=== PATIENT | male | born 1975 | race African-American/Black ===

== ENCOUNTER 2023-08-15 16:29 | Inpatient (IN) | payer OTHER ==
[2023-08-15] MEDS ORDERED: VANCOMYCIN 1,000 MG in DEXTROSE 5%-WATER - 250 ML IVPB ONE (17:48)
[2023-08-15] MEDS ORDERED: AZTREONAM 1 GM in DEXTROSE 5%-WATER - 50 ML IVPB ONE (17:49)
[2023-08-15] MEDS ORDERED: ACETAMINOPHEN 1000 MG/100 ML BAG IVPB ONE (17:53)
[2023-08-15] MEDS ORDERED: morphine CARPU-JECT 4 MG/1 ML DISP.SYRIN IVPUSH ONE (17:59)
[2023-08-15] MEDS ORDERED: morphine SULFATE 4 MG/ML VIAL ONE (18:18)
[2023-08-15] MEDS ORDERED: VANCOMYCIN 1 GRAM (PRE-DOCKED) 1,000 MG/250 ML BAG IVPB ONE (18:19)
[2023-08-15 18:24] LABS: BASO % 0.7 % (0-2.0); EOS % 0.6 % (0-4.5); HEMATOCRIT 36.7 % (35.4-49); HEMOGLOBIN 11.3 GM/dL (11.7-16.9); LYMPH % 12.7 % (8-40); MCHC 30.8 g/dl (32.0-35.9); MEAN CELL VOLUME 77.8 fl (80-96); MEAN PLT VOLUME 9.4 fl (7.5-11.1); MONO % 8.3 % (3.8-10.2); NEUT % 77.7 % (42.8-82.8); PLATELET COUNT 245 10^3/uL (134-434); RBC 4.71 M/mm3 (4.00-5.60); WHITE BLOOD COUNT 17.9 K/mm3 (4.0-10.0)
[2023-08-15 18:31] LABS: INR 1.65 (0.83-1.09)
[2023-08-15 18:59] LABS: POTASSIUM 4.4 mmol/L (3.5-5.1)
[2023-08-15 19:01] LABS: CALCIUM 8.7 mg/dL (8.5-10.1)
[2023-08-15 19:02] LABS: ALBUMIN 2.2 g/dl (3.4-5.0); BLOOD UREA NITROGEN 10.8 mg/dL (7-18)
[2023-08-15 19:05] LABS: CREATININE 0.8 mg/dL (0.55-1.3)
[2023-08-15 19:06] LABS: BILIRUBIN,TOTAL 0.5 mg/dL (0.2-1); TOT PROT 7.7 g/dl (6.4-8.2)
[2023-08-15] MEDS ORDERED: CLINDAMYCIN 600MG PREMIX IVPB 600 MG/50 ML BAG IVPB ONE ×2 (19:23→20:59)
[2023-08-15] MEDS ORDERED: ACETAMINOPHEN INJECTION 100 ML IVPB ONE (19:29)
[2023-08-15] MEDS ORDERED: ACETAMINOPHEN 500 MG TABLET (FP) ONE (19:31)
[2023-08-15] MEDS ORDERED: AZTREONAM 1 GM VIAL (RESTRICTED TO ID) ONE (20:59)
[2023-08-15] MEDS ORDERED: ACETAMINOPHEN 1000 MG/100 ML BAG IVPB PRN (21:25)
[2023-08-15] MEDS ORDERED: INSULIN (LEVEMIR) 100 UNITS/ML UNITS SQ SCH (22:00)
[2023-08-15] MEDS ORDERED: morphine SULFATE 4 MG/ML VIAL IVPUSH PRN (22:18)
[2023-08-15] MEDS: SODIUM CHLORIDE 1,000 ML IV SCH (22:40)
[2023-08-15] MEDS ORDERED: LACTATED RINGERS SOLUTION 1000 ML INFUS.BAG IV ONE (22:43)
[2023-08-16] MEDS ORDERED: CLINDAMYCIN 600MG PREMIX IVPB 600 MG/50 ML BAG IVPB SCH (05:00)
[2023-08-16] MEDS: SODIUM CHLORIDE 1,000 ML IV SCH (05:36)
[2023-08-16] MEDS ORDERED: AZTREONAM 2 GM in DEXTROSE 5%-WATER 100 ML IVPB SCH ×2 (06:00→14:00)
[2023-08-16] MEDS ORDERED: VANCOMYCIN PREMIX 1.5 GM 1,500 MG/300 ML BAG IVPB SCH ×3 (07:00→19:00)
[2023-08-16] MEDS: GABAPENTIN 100 MG CAPSULE PO SCH ×5 (07:54→21:54)
[2023-08-16 08:14] LABS: BASO % 0.5 % (0-2.0); EOS % 1.8 % (0-4.5); HEMATOCRIT 31.7 % (35.4-49); HEMOGLOBIN 10.5 GM/dL (11.7-16.9); LYMPH % 8.4 % (8-40); MEAN CELL VOLUME 75.8 fl (80-96); MONO % 5.3 % (3.8-10.2); PLATELET COUNT 249 10^3/uL (134-434); RBC 4.18 M/mm3 (4.00-5.60); WHITE BLOOD COUNT 14.8 K/mm3 (4.0-10.0)
[2023-08-16 08:42] LABS: POTASSIUM 4.1 mmol/L (3.5-5.1)
[2023-08-16] MEDS ORDERED: ACETAMINOPHEN INJECTION 100 ML IVPB ONE (08:43)
[2023-08-16 08:44] LABS: ALBUMIN 1.8 g/dl (3.4-5.0); BLOOD UREA NITROGEN 11.2 mg/dL (7-18); CALCIUM 7.7 mg/dL (8.5-10.1); MAGNESIUM 1.9 mg/dL (1.8-2.4)
[2023-08-16 08:47] LABS: CREATININE 0.8 mg/dL (0.55-1.3); PHOSPHOROUS 3.4 mg/dL (2.5-4.9)
[2023-08-16] MEDS ORDERED: FENTANYL CITRATE/PF 50 MCG/ML VIAL ONE (08:48)
[2023-08-16 08:49] LABS: BILIRUBIN,TOTAL 0.6 mg/dL (0.2-1); TOT PROT 6.6 g/dl (6.4-8.2)
[2023-08-16] MEDS ORDERED: PROPOFOL 20 ML ONE (08:49)
[2023-08-16] MEDS ORDERED: SUCCINYLCHOLINE CHLORIDE 200 MG/10 ML SYRINGE ONE (08:49)
[2023-08-16] MEDS ORDERED: MIDAZOLAM HCL 2 MG/2 ML SINGLE DOSE VIAL ONE (08:49)
[2023-08-16] MEDS ORDERED: VANCOMYCIN HCL 1,500 MG in DEXTROSE 5%-WATER - 250 ML IVPB SCH (09:00)
[2023-08-16] MEDS ORDERED: VANCOMYCIN 1,000 MG VIAL (RESTRICTED TO ID ONLY) ONE ×3 (10:36→11:07)
[2023-08-16] MEDS ORDERED: ACETAMINOPHEN 1000 MG/100 ML BAG IVPB PRN (11:29)
[2023-08-16] MEDS ORDERED: SODIUM CHLORIDE 1,000 ML IV SCH (11:29)
[2023-08-16] MEDS ORDERED: morphine SULFATE 4 MG/ML VIAL IVPUSH PRN (11:29)
[2023-08-16] MEDS ORDERED: LACTATED RINGERS SOLUTION 1,000 ML IV SCH (12:00)
[2023-08-16] MEDS: CLINDAMYCIN 600MG PREMIX IVPB 600 MG/50 ML BAG IVPB SCH ×2 (14:55→23:00)
[2023-08-16] MEDS: AZTREONAM 2 GM in DEXTROSE 5%-WATER 100 ML IVPB SCH ×2 (14:55→23:00)
[2023-08-16] MEDS: VANCOMYCIN PREMIX 1.5 GM 1,500 MG/300 ML BAG IVPB SCH (20:01)
[2023-08-16] MEDS: INSULIN (LEVEMIR) 100 UNITS/ML UNITS SQ SCH (21:54)
[2023-08-16] MEDS: ATORVASTATIN CA 40 MG TABLET (FP) PO SCH (21:55)
[2023-08-16] MEDS ORDERED: ATORVASTATIN CA 40 MG TABLET (FP) PO SCH (22:00)
[2023-08-17] MEDS ORDERED: ACETAMINOPHEN 325 MG TABLET (FP) PO PRN (01:49)
[2023-08-17] MEDS: AZTREONAM 2 GM in DEXTROSE 5%-WATER 100 ML IVPB SCH ×2 (05:51→14:49)
[2023-08-17] MEDS: GABAPENTIN 100 MG CAPSULE PO SCH ×3 (05:52→22:46)
[2023-08-17] MEDS: CLINDAMYCIN 600MG PREMIX IVPB 600 MG/50 ML BAG IVPB SCH ×3 (05:52→22:47)
[2023-08-17] MEDS: VANCOMYCIN PREMIX 1.5 GM 1,500 MG/300 ML BAG IVPB SCH ×2 (09:22→17:03)
[2023-08-17] MEDS: morphine SULFATE 4 MG/ML VIAL IVPUSH PRN (14:23)
[2023-08-17] MEDS: ASPIRIN 81 MG CHEWABLE TABLETS PO SCH (17:47)
[2023-08-17] MEDS: AZTREONAM 1 GM in DEXTROSE 5%-WATER - 50 ML IVPB SCH (18:58)
[2023-08-17] MEDS: ATORVASTATIN CA 40 MG TABLET (FP) PO SCH (22:46)
[2023-08-17] MEDS: INSULIN (LEVEMIR) 100 UNITS/ML UNITS SQ SCH (22:47)
[2023-08-18] MEDS: AZTREONAM 1 GM in DEXTROSE 5%-WATER - 50 ML IVPB SCH ×3 (01:40→18:15)
[2023-08-18] MEDS: VANCOMYCIN PREMIX 1.5 GM 1,500 MG/300 ML BAG IVPB SCH ×2 (03:00→16:39)
[2023-08-18] MEDS: GABAPENTIN 100 MG CAPSULE PO SCH ×3 (06:12→21:42)
[2023-08-18] MEDS: CLINDAMYCIN 600MG PREMIX IVPB 600 MG/50 ML BAG IVPB SCH ×3 (06:12→21:44)
[2023-08-18] MEDS: morphine SULFATE 4 MG/ML VIAL IVPUSH PRN ×2 (08:14→18:12)
[2023-08-18 09:10] LABS: BASO % 0.3 % (0-2.0); EOS % 1.6 % (0-4.5); HEMOGLOBIN 9.6 GM/dL (11.7-16.9); LYMPH % 10.1 % (8-40); MCH 24.2 pg (25.7-33.7); MCHC 31.1 g/dl (32.0-35.9); MEAN CELL VOLUME 77.7 fl (80-96); MEAN PLT VOLUME 8.4 fl (7.5-11.1); MONO % 6.4 % (3.8-10.2); NEUT % 81.6 % (42.8-82.8); PLATELET COUNT 300 10^3/uL (134-434); RBC 3.99 M/mm3 (4.00-5.60); RDW 15.2 % (11.9-15.9); WHITE BLOOD COUNT 16.5 K/mm3 (4.0-10.0)
[2023-08-18 09:41] LABS: POTASSIUM 4.1 mmol/L (3.5-5.1)
[2023-08-18 09:53] LABS: CALCIUM 8.1 mg/dL (8.5-10.1)
[2023-08-18 09:54] LABS: BLOOD UREA NITROGEN 8.8 mg/dL (7-18)
[2023-08-18 09:58] LABS: CREATININE 0.7 mg/dL (0.55-1.3)
[2023-08-18] MEDS: ASPIRIN 81 MG CHEWABLE TABLETS PO SCH (10:10)
[2023-08-18] MEDS ORDERED: ACETAMINOPHEN 325 MG TABLET (FP) PO PRN (11:29)
[2023-08-18] MEDS ORDERED: INSULIN (NOVOLOG) ASPART 100 UNITS/ML 10ML VIAL ONE (16:10)
[2023-08-18] MEDS: ATORVASTATIN CA 40 MG TABLET (FP) PO SCH (21:42)
[2023-08-18] MEDS: INSULIN (LEVEMIR) 100 UNITS/ML UNITS SQ SCH ×2 (21:44→21:50)
[2023-08-19] MEDS: morphine SULFATE 4 MG/ML VIAL IVPUSH PRN ×3 (01:02→18:31)
[2023-08-19] MEDS: AZTREONAM 1 GM in DEXTROSE 5%-WATER - 50 ML IVPB SCH ×3 (01:02→18:28)
[2023-08-19] MEDS: VANCOMYCIN PREMIX 1.5 GM 1,500 MG/300 ML BAG IVPB SCH ×2 (03:14→16:26)
[2023-08-19] MEDS: GABAPENTIN 100 MG CAPSULE PO SCH ×3 (06:18→21:45)
[2023-08-19] MEDS: CLINDAMYCIN 600MG PREMIX IVPB 600 MG/50 ML BAG IVPB SCH ×3 (06:18→21:46)
[2023-08-19 09:30] LABS: BASO % 0.6 % (0-2.0); EOS % 1.6 % (0-4.5); HEMATOCRIT 33.3 % (35.4-49); HEMOGLOBIN 10.1 GM/dL (11.7-16.9); LYMPH % 9.7 % (8-40); MCH 23.6 pg (25.7-33.7); MCHC 30.4 g/dl (32.0-35.9); MEAN CELL VOLUME 77.5 fl (80-96); MEAN PLT VOLUME 8.5 fl (7.5-11.1); MONO % 5.3 % (3.8-10.2); NEUT % 82.8 % (42.8-82.8); PLATELET COUNT 349 10^3/uL (134-434); RDW 14.8 % (11.9-15.9)
[2023-08-19 09:36] LABS: INR 1.68 (0.83-1.09); PROTHROMBIN TIME (PATIENT) 19.4 SEC (9.7-13.0)
[2023-08-19 10:23] LABS: POTASSIUM 4.5 mmol/L (3.5-5.1)
[2023-08-19 10:38] LABS: ALBUMIN 1.7 g/dl (3.4-5.0); BLOOD UREA NITROGEN 6.9 mg/dL (7-18); CALCIUM 8.5 mg/dL (8.5-10.1); MAGNESIUM 1.9 mg/dL (1.8-2.4)
[2023-08-19 10:43] LABS: CREATININE 0.7 mg/dL (0.55-1.3)
[2023-08-19 10:44] LABS: BILIRUBIN,TOTAL 0.4 mg/dL (0.2-1); TOT PROT 7.2 g/dl (6.4-8.2)
[2023-08-19] MEDS: ASPIRIN 81 MG CHEWABLE TABLETS PO SCH (11:30)
[2023-08-19] MEDS: ATORVASTATIN CA 40 MG TABLET (FP) PO SCH (21:45)
[2023-08-19] MEDS: INSULIN (LEVEMIR) 100 UNITS/ML UNITS SQ SCH (21:50)
[2023-08-20] MEDS: morphine SULFATE 4 MG/ML VIAL IVPUSH PRN ×3 (00:30→09:20)
[2023-08-20] MEDS: AZTREONAM 1 GM in DEXTROSE 5%-WATER - 50 ML IVPB SCH ×3 (01:03→17:50)
[2023-08-20] MEDS: VANCOMYCIN PREMIX 1.5 GM 1,500 MG/300 ML BAG IVPB SCH ×2 (03:53→16:41)
[2023-08-20] MEDS: GABAPENTIN 100 MG CAPSULE PO SCH ×4 (05:01→21:56)
[2023-08-20] MEDS: CLINDAMYCIN 600MG PREMIX IVPB 600 MG/50 ML BAG IVPB SCH ×2 (05:04→13:15)
[2023-08-20 08:44] LABS: BASO % 0.8 % (0-2.0); EOS % 1.2 % (0-4.5); HEMATOCRIT 30.4 % (35.4-49); LYMPH % 14.2 % (8-40); MCH 24.8 pg (25.7-33.7); MCHC 32.7 g/dl (32.0-35.9); MEAN CELL VOLUME 75.6 fl (80-96); MEAN PLT VOLUME 8.3 fl (7.5-11.1); MONO % 6.5 % (3.8-10.2); NEUT % 77.3 % (42.8-82.8); PLATELET COUNT 391 10^3/uL (134-434); RBC 4.03 M/mm3 (4.00-5.60); WHITE BLOOD COUNT 12.6 K/mm3 (4.0-10.0)
[2023-08-20 09:02] LABS: POTASSIUM 4.3 mmol/L (3.5-5.1)
[2023-08-20 09:21] LABS: ALBUMIN 1.7 g/dl (3.4-5.0); CALCIUM 8.6 mg/dL (8.5-10.1); MAGNESIUM 1.8 mg/dL (1.8-2.4)
[2023-08-20 09:24] LABS: CREATININE 0.6 mg/dL (0.55-1.3)
[2023-08-20 09:25] LABS: BILIRUBIN,TOTAL 0.6 mg/dL (0.2-1); TOT PROT 7.3 g/dl (6.4-8.2)
[2023-08-20] MEDS: ASPIRIN 81 MG CHEWABLE TABLETS PO SCH (09:57)
[2023-08-20] MEDS ORDERED: ACETAMINOPHEN 500 MG TABLET (FP) PO PRN (14:00)
[2023-08-20] MEDS ORDERED: PROPOFOL 20 ML ONE (21:46)
[2023-08-20] MEDS ORDERED: FENTANYL CITRATE/PF 50 MCG/ML VIAL ONE (21:46)
[2023-08-20] MEDS ORDERED: MIDAZOLAM HCL 2 MG/2 ML SINGLE DOSE VIAL ONE ×2 (21:46→21:49)
[2023-08-20] MEDS ORDERED: LIDOCAINE HCL 1%, 10 MG/ML (20ML VIAL) NR ONE (21:55)
[2023-08-20] MEDS: ATORVASTATIN CA 40 MG TABLET (FP) PO SCH (21:56)
[2023-08-20] MEDS: INSULIN (LEVEMIR) 100 UNITS/ML UNITS SQ SCH (21:56)
[2023-08-20] MEDS ORDERED: SODIUM CHLORIDE 1,000 ML IV SCH (22:45)
[2023-08-21] MEDS: AZTREONAM 1 GM in DEXTROSE 5%-WATER - 50 ML IVPB SCH ×3 (01:06→17:31)
[2023-08-21] MEDS: SODIUM CHLORIDE 1,000 ML IV SCH ×2 (01:08→21:56)
[2023-08-21] MEDS: VANCOMYCIN PREMIX 1.5 GM 1,500 MG/300 ML BAG IVPB SCH ×2 (03:01→17:31)
[2023-08-21] MEDS ORDERED: INSULIN (NOVOLOG) ASPART 100 UNITS/ML 10ML VIAL ONE (06:43)
[2023-08-21] MEDS: GABAPENTIN 100 MG CAPSULE PO SCH ×3 (06:47→21:31)
[2023-08-21] MEDS: ACETAMINOPHEN 500 MG TABLET (FP) PO PRN ×2 (06:48→13:49)
[2023-08-21] MEDS ORDERED: INSULIN (LEVEMIR) 100 UNITS/ML UNITS SQ ONE (07:02)
[2023-08-21] MEDS: morphine SULFATE 4 MG/ML VIAL IVPUSH PRN ×4 (08:42→21:32)
[2023-08-21 09:18] LABS: BASO % 0.7 % (0-2.0); EOS % 0.5 % (0-4.5); HEMATOCRIT 30.9 % (35.4-49); HEMOGLOBIN 10.2 GM/dL (11.7-16.9); LYMPH % 10.3 % (8-40); MCH 24.7 pg (25.7-33.7); MCHC 32.9 g/dl (32.0-35.9); MEAN CELL VOLUME 75.2 fl (80-96); MEAN PLT VOLUME 8.1 fl (7.5-11.1); NEUT % 82.5 % (42.8-82.8); PLATELET COUNT 472 10^3/uL (134-434); RBC 4.11 M/mm3 (4.00-5.60); RDW 14.9 % (11.9-15.9); WHITE BLOOD COUNT 16.7 K/mm3 (4.0-10.0)
[2023-08-21 09:55] LABS: POTASSIUM 4.7 mmol/L (3.5-5.1)
[2023-08-21 09:59] LABS: CALCIUM 8.2 mg/dL (8.5-10.1)
[2023-08-21 10:00] LABS: ALBUMIN 1.8 g/dl (3.4-5.0); MAGNESIUM 1.9 mg/dL (1.8-2.4)
[2023-08-21 10:03] LABS: CREATININE 0.7 mg/dL (0.55-1.3)
[2023-08-21 10:04] LABS: BILIRUBIN,TOTAL 0.4 mg/dL (0.2-1); TOT PROT 7.7 g/dl (6.4-8.2)
[2023-08-21 10:08] LABS: BLOOD UREA NITROGEN 8.8 mg/dL (7-18)
[2023-08-21] MEDS: ASPIRIN 81 MG CHEWABLE TABLETS PO SCH (10:44)
[2023-08-21] MEDS ORDERED: oxyCODONE HCL 5 MG TABLET PO PRN (12:12)
[2023-08-21] MEDS: POLYETHYLENE GLYCOL (HEALTHYLAX) 3350 17 GM PACKET PO SCH (13:45)
[2023-08-21] MEDS: ATORVASTATIN CA 40 MG TABLET (FP) PO SCH (21:31)
[2023-08-21] MEDS: INSULIN (LEVEMIR) 100 UNITS/ML UNITS SQ SCH (21:35)
[2023-08-22] MEDS: morphine SULFATE 4 MG/ML VIAL IVPUSH PRN ×2 (00:46→08:05)
[2023-08-22] MEDS: AZTREONAM 1 GM in DEXTROSE 5%-WATER - 50 ML IVPB SCH ×3 (01:52→17:14)
[2023-08-22] MEDS: VANCOMYCIN PREMIX 1.5 GM 1,500 MG/300 ML BAG IVPB SCH ×2 (04:57→15:44)
[2023-08-22] MEDS: GABAPENTIN 100 MG CAPSULE PO SCH (05:15)
[2023-08-22 09:35] LABS: BASO % 0.7 % (0-2.0); EOS % 0.8 % (0-4.5); HEMOGLOBIN 9.8 GM/dL (11.7-16.9); MCH 24.6 pg (25.7-33.7); MCHC 32.7 g/dl (32.0-35.9); MEAN CELL VOLUME 75.3 fl (80-96); MONO % 5.8 % (3.8-10.2); NEUT % 78.7 % (42.8-82.8); PLATELET COUNT 464 10^3/uL (134-434); RBC 3.98 M/mm3 (4.00-5.60); WHITE BLOOD COUNT 14.2 K/mm3 (4.0-10.0)
[2023-08-22 09:51] LABS: POTASSIUM 4.6 mmol/L (3.5-5.1)
[2023-08-22 10:00] LABS: ALBUMIN 1.8 g/dl (3.4-5.0); CALCIUM 8.2 mg/dL (8.5-10.1)
[2023-08-22 10:02] LABS: BLOOD UREA NITROGEN 6.6 mg/dL (7-18); MAGNESIUM 1.9 mg/dL (1.8-2.4)
[2023-08-22 10:03] LABS: CREATININE 0.6 mg/dL (0.55-1.3)
[2023-08-22 10:05] LABS: BILIRUBIN,TOTAL 0.6 mg/dL (0.2-1); TOT PROT 7.6 g/dl (6.4-8.2)
[2023-08-22] MEDS: POLYETHYLENE GLYCOL (HEALTHYLAX) 3350 17 GM PACKET PO SCH (10:40)
[2023-08-22] MEDS: ASPIRIN 81 MG CHEWABLE TABLETS PO SCH (10:40)
[2023-08-22] MEDS: oxyCODONE HCL 5 MG TABLET PO PRN ×3 (10:51→21:25)
[2023-08-22] MEDS: GABAPENTIN 400 MG CAPSULE PO SCH ×2 (13:58→21:25)
[2023-08-22] MEDS: ATORVASTATIN CA 40 MG TABLET (FP) PO SCH (21:24)
[2023-08-22] MEDS: INSULIN (LEVEMIR) 100 UNITS/ML UNITS SQ SCH (21:42)
[2023-08-23] MEDS: AZTREONAM 1 GM in DEXTROSE 5%-WATER - 50 ML IVPB SCH ×3 (01:05→17:37)
[2023-08-23] MEDS: oxyCODONE HCL 5 MG TABLET PO PRN ×5 (02:32→22:44)
[2023-08-23] MEDS: VANCOMYCIN PREMIX 1.5 GM 1,500 MG/300 ML BAG IVPB SCH ×2 (03:09→15:27)
[2023-08-23] MEDS: GABAPENTIN 400 MG CAPSULE PO SCH (05:46)
[2023-08-23] MEDS: ACETAMINOPHEN 500 MG TABLET (FP) PO PRN ×2 (08:31→17:41)
[2023-08-23] MEDS: SODIUM CHLORIDE 1,000 ML IV SCH ×2 (08:34→22:35)
[2023-08-23] MEDS: POLYETHYLENE GLYCOL (HEALTHYLAX) 3350 17 GM PACKET PO SCH (10:09)
[2023-08-23] MEDS: ASPIRIN 81 MG CHEWABLE TABLETS PO SCH (10:09)
[2023-08-23] MEDS: GABAPENTIN 300 MG CAPSULE PO SCH ×2 (13:13→22:35)
[2023-08-23] MEDS: ATORVASTATIN CA 40 MG TABLET (FP) PO SCH (22:35)
[2023-08-23] MEDS: INSULIN (LEVEMIR) 100 UNITS/ML UNITS SQ SCH (22:36)
[2023-08-24] MEDS: AZTREONAM 1 GM in DEXTROSE 5%-WATER - 50 ML IVPB SCH ×3 (02:31→19:55)
[2023-08-24] MEDS: oxyCODONE HCL 5 MG TABLET PO PRN ×3 (05:18→17:20)
[2023-08-24] MEDS: GABAPENTIN 300 MG CAPSULE PO SCH ×3 (05:18→21:12)
[2023-08-24] MEDS: VANCOMYCIN PREMIX 1.5 GM 1,500 MG/300 ML BAG IVPB SCH ×2 (05:18→17:50)
[2023-08-24 10:02] LABS: BASO % 1.1 % (0-2.0); EOS % 1.5 % (0-4.5); HEMOGLOBIN 9.6 GM/dL (11.7-16.9); LYMPH % 18.1 % (8-40); MCH 24.2 pg (25.7-33.7); MCHC 31.1 g/dl (32.0-35.9); MEAN CELL VOLUME 77.8 fl (80-96); MEAN PLT VOLUME 7.9 fl (7.5-11.1); MONO % 6.6 % (3.8-10.2); NEUT % 72.7 % (42.8-82.8); PLATELET COUNT 526 10^3/uL (134-434); RBC 3.98 M/mm3 (4.00-5.60); RDW 14.9 % (11.9-15.9); WHITE BLOOD COUNT 9.1 K/mm3 (4.0-10.0)
[2023-08-24] MEDS: POLYETHYLENE GLYCOL (HEALTHYLAX) 3350 17 GM PACKET PO SCH (10:29)
[2023-08-24] MEDS: ASPIRIN 81 MG CHEWABLE TABLETS PO SCH (10:29)
[2023-08-24 10:56] LABS: POTASSIUM 4.8 mmol/L (3.5-5.1)
[2023-08-24 10:59] LABS: CALCIUM 8.9 mg/dL (8.5-10.1)
[2023-08-24 11:00] LABS: ALBUMIN 1.9 g/dl (3.4-5.0); BLOOD UREA NITROGEN 7.9 mg/dL (7-18); MAGNESIUM 1.9 mg/dL (1.8-2.4)
[2023-08-24 11:02] LABS: CREATININE 0.7 mg/dL (0.55-1.3)
[2023-08-24 11:04] LABS: BILIRUBIN,TOTAL 0.3 mg/dL (0.2-1); TOT PROT 7.7 g/dl (6.4-8.2)
[2023-08-24] MEDS: AMMONIUM LACTATE 12% LOTION 225 GM BOTTLE TP PRN (12:20)
[2023-08-24] MEDS: morphine SULFATE 4 MG/ML VIAL IVPUSH PRN (21:11)
[2023-08-24] MEDS: ATORVASTATIN CA 40 MG TABLET (FP) PO SCH (21:12)
[2023-08-24] MEDS: INSULIN (LEVEMIR) 100 UNITS/ML UNITS SQ SCH (21:23)
[2023-08-25] MEDS: AZTREONAM 1 GM in DEXTROSE 5%-WATER - 50 ML IVPB SCH ×3 (02:05→18:20)
[2023-08-25] MEDS: GABAPENTIN 300 MG CAPSULE PO SCH ×3 (05:09→21:19)
[2023-08-25] MEDS: VANCOMYCIN PREMIX 1.5 GM 1,500 MG/300 ML BAG IVPB SCH ×2 (05:10→16:56)
[2023-08-25] MEDS: oxyCODONE HCL 5 MG TABLET PO PRN ×3 (05:23→21:17)
[2023-08-25 07:16] LABS: BASO % 1.5 % (0-2.0); EOS % 1.3 % (0-4.5); HEMATOCRIT 31.2 % (35.4-49); HEMOGLOBIN 9.9 GM/dL (11.7-16.9); LYMPH % 21.1 % (8-40); MCH 24.4 pg (25.7-33.7); MCHC 31.6 g/dl (32.0-35.9); MEAN CELL VOLUME 77.3 fl (80-96); MEAN PLT VOLUME 7.7 fl (7.5-11.1); NEUT % 69.1 % (42.8-82.8); PLATELET COUNT 519 10^3/uL (134-434); RBC 4.04 M/mm3 (4.00-5.60); RDW 14.8 % (11.9-15.9); WHITE BLOOD COUNT 8.8 K/mm3 (4.0-10.0)
[2023-08-25] MEDS: morphine SULFATE 4 MG/ML VIAL IVPUSH PRN (08:32)
[2023-08-25] MEDS: ASPIRIN 81 MG CHEWABLE TABLETS PO SCH (12:02)
[2023-08-25] MEDS: POLYETHYLENE GLYCOL (HEALTHYLAX) 3350 17 GM PACKET PO SCH (12:03)
[2023-08-25] MEDS: INSULIN SLIDING SCALE (NOVOLOG) 1 VIAL SQ SCH ×2 (16:34→21:19)
[2023-08-25] MEDS: AMMONIUM LACTATE 12% LOTION 225 GM BOTTLE TP PRN (18:19)
[2023-08-25] MEDS: INSULIN (LEVEMIR) 100 UNITS/ML UNITS SQ SCH (21:18)
[2023-08-25] MEDS: ATORVASTATIN CA 40 MG TABLET (FP) PO SCH (21:19)
[2023-08-26] MEDS: AZTREONAM 1 GM in DEXTROSE 5%-WATER - 50 ML IVPB SCH ×3 (01:03→17:24)
[2023-08-26] MEDS: oxyCODONE HCL 5 MG TABLET PO PRN ×4 (02:56→19:07)
[2023-08-26] MEDS: VANCOMYCIN PREMIX 1.5 GM 1,500 MG/300 ML BAG IVPB SCH ×2 (05:27→15:54)
[2023-08-26] MEDS: GABAPENTIN 300 MG CAPSULE PO SCH ×3 (05:33→22:48)
[2023-08-26] MEDS: INSULIN SLIDING SCALE (NOVOLOG) 1 VIAL SQ SCH ×4 (06:10→22:48)
[2023-08-26 10:05] LABS: BASO % 1.7 % (0-2.0); EOS % 0.8 % (0-4.5); HEMATOCRIT 32.3 % (35.4-49); HEMOGLOBIN 10.2 GM/dL (11.7-16.9); LYMPH % 18.8 % (8-40); MCH 24.4 pg (25.7-33.7); MCHC 31.6 g/dl (32.0-35.9); MEAN CELL VOLUME 77.2 fl (80-96); MEAN PLT VOLUME 7.6 fl (7.5-11.1); MONO % 6.7 % (3.8-10.2); PLATELET COUNT 542 10^3/uL (134-434); RBC 4.19 M/mm3 (4.00-5.60); RDW 14.7 % (11.9-15.9); WHITE BLOOD COUNT 8.2 K/mm3 (4.0-10.0)
[2023-08-26] MEDS: ENOXAPARIN NA (PORCINE) 40 MG/0.4 ML DISP.SYRIN SQ SCH (10:23)
[2023-08-26] MEDS: ASPIRIN 81 MG CHEWABLE TABLETS PO SCH (10:23)
[2023-08-26] MEDS: POLYETHYLENE GLYCOL (HEALTHYLAX) 3350 17 GM PACKET PO SCH (10:23)
[2023-08-26 10:37] LABS: POTASSIUM 4.4 mmol/L (3.5-5.1)
[2023-08-26 11:27] LABS: CALCIUM 8.8 mg/dL (8.5-10.1)
[2023-08-26 11:28] LABS: ALBUMIN 1.9 g/dl (3.4-5.0); BLOOD UREA NITROGEN 5.7 mg/dL (7-18); MAGNESIUM 1.7 mg/dL (1.8-2.4)
[2023-08-26 11:31] LABS: CREATININE 0.6 mg/dL (0.55-1.3)
[2023-08-26 11:33] LABS: BILIRUBIN,TOTAL 0.4 mg/dL (0.2-1); TOT PROT 7.7 g/dl (6.4-8.2)
[2023-08-26] MEDS: ATORVASTATIN CA 40 MG TABLET (FP) PO SCH (22:48)
[2023-08-26] MEDS: INSULIN (LEVEMIR) 100 UNITS/ML UNITS SQ SCH (22:49)
[2023-08-27] MEDS: oxyCODONE HCL 5 MG TABLET PO PRN ×4 (00:50→21:23)
[2023-08-27] MEDS: AZTREONAM 1 GM in DEXTROSE 5%-WATER - 50 ML IVPB SCH ×3 (01:14→17:27)
[2023-08-27] MEDS: VANCOMYCIN PREMIX 1.5 GM 1,500 MG/300 ML BAG IVPB SCH ×2 (05:02→15:59)
[2023-08-27] MEDS: INSULIN SLIDING SCALE (NOVOLOG) 1 VIAL SQ SCH ×4 (07:01→21:30)
[2023-08-27] MEDS: GABAPENTIN 300 MG CAPSULE PO SCH ×3 (07:01→21:24)
[2023-08-27 09:50] LABS: BASO % 1.1 % (0-2.0); EOS % 1.4 % (0-4.5); HEMATOCRIT 31.3 % (35.4-49); HEMOGLOBIN 10.2 GM/dL (11.7-16.9); LYMPH % 22.1 % (8-40); MCH 24.5 pg (25.7-33.7); MCHC 32.5 g/dl (32.0-35.9); MEAN CELL VOLUME 75.4 fl (80-96); MEAN PLT VOLUME 7.5 fl (7.5-11.1); MONO % 7.7 % (3.8-10.2); NEUT % 67.7 % (42.8-82.8); PLATELET COUNT 514 10^3/uL (134-434); RBC 4.15 M/mm3 (4.00-5.60); WHITE BLOOD COUNT 8.5 K/mm3 (4.0-10.0)
[2023-08-27 09:52] LABS: POTASSIUM 4.3 mmol/L (3.5-5.1)
[2023-08-27 10:03] LABS: BLOOD UREA NITROGEN 9.3 mg/dL (7-18); MAGNESIUM 1.7 mg/dL (1.8-2.4)
[2023-08-27 10:06] LABS: CREATININE 0.6 mg/dL (0.55-1.3)
[2023-08-27 10:08] LABS: BILIRUBIN,TOTAL 0.3 mg/dL (0.2-1); TOT PROT 7.7 g/dl (6.4-8.2)
[2023-08-27] MEDS: AMINO ACIDS/PROTEIN HYDROLYS 30 ML LIQUID.PKT PO SCH ×2 (10:47→16:39)
[2023-08-27] MEDS: POLYETHYLENE GLYCOL (HEALTHYLAX) 3350 17 GM PACKET PO SCH (10:47)
[2023-08-27] MEDS: ASPIRIN 81 MG CHEWABLE TABLETS PO SCH (10:47)
[2023-08-27] MEDS: PANTOPRAZOLE 40 MG TABLET PO SCH (10:48)
[2023-08-27] MEDS: NYSTATIN 500,000 UNITS/5 ML SUSPENSION PO SCH ×3 (10:48→17:27)
[2023-08-27] MEDS: ENOXAPARIN NA (PORCINE) 40 MG/0.4 ML DISP.SYRIN SQ SCH (10:48)
[2023-08-27] MEDS ORDERED: INSULIN (NOVOLOG) ASPART 100 UNITS/ML 10ML VIAL ONE (15:54)
[2023-08-27] MEDS: INSULIN (LEVEMIR) 100 UNITS/ML UNITS SQ SCH (21:24)
[2023-08-27] MEDS: ATORVASTATIN CA 40 MG TABLET (FP) PO SCH (21:25)
[2023-08-28] MEDS: AZTREONAM 1 GM in DEXTROSE 5%-WATER - 50 ML IVPB SCH ×2 (01:14→09:56)
[2023-08-28] MEDS: NYSTATIN 500,000 UNITS/5 ML SUSPENSION PO SCH ×5 (01:14→23:43)
[2023-08-28] MEDS: VANCOMYCIN PREMIX 1.5 GM 1,500 MG/300 ML BAG IVPB SCH ×2 (03:17→16:49)
[2023-08-28] MEDS: oxyCODONE HCL 5 MG TABLET PO PRN ×4 (03:17→18:29)
[2023-08-28] MEDS: GABAPENTIN 300 MG CAPSULE PO SCH ×3 (05:37→21:22)
[2023-08-28] MEDS: INSULIN SLIDING SCALE (NOVOLOG) 1 VIAL SQ SCH ×4 (06:06→22:38)
[2023-08-28 09:18] LABS: BASO % 0.9 % (0-2.0); EOS % 1.2 % (0-4.5); HEMATOCRIT 31.2 % (35.4-49); LYMPH % 23.7 % (8-40); MCH 24.7 pg (25.7-33.7); MEAN CELL VOLUME 77.3 fl (80-96); MEAN PLT VOLUME 7.6 fl (7.5-11.1); MONO % 8.2 % (3.8-10.2); PLATELET COUNT 468 10^3/uL (134-434); RBC 4.03 M/mm3 (4.00-5.60); RDW 14.8 % (11.9-15.9); WHITE BLOOD COUNT 7.2 K/mm3 (4.0-10.0)
[2023-08-28] MEDS: PANTOPRAZOLE 40 MG TABLET PO SCH (09:56)
[2023-08-28] MEDS: ASPIRIN 81 MG CHEWABLE TABLETS PO SCH (09:56)
[2023-08-28] MEDS: POLYETHYLENE GLYCOL (HEALTHYLAX) 3350 17 GM PACKET PO SCH ×2 (09:56→10:17)
[2023-08-28] MEDS: ENOXAPARIN NA (PORCINE) 40 MG/0.4 ML DISP.SYRIN SQ SCH (09:56)
[2023-08-28] MEDS: AMINO ACIDS/PROTEIN HYDROLYS 30 ML LIQUID.PKT PO SCH ×2 (10:04→16:46)
[2023-08-28 10:09] LABS: POTASSIUM 4.6 mmol/L (3.5-5.1)
[2023-08-28 10:12] LABS: ALBUMIN 2.1 g/dl (3.4-5.0); BLOOD UREA NITROGEN 12.2 mg/dL (7-18); CALCIUM 8.7 mg/dL (8.5-10.1); MAGNESIUM 1.9 mg/dL (1.8-2.4)
[2023-08-28 10:15] LABS: CREATININE 0.6 mg/dL (0.55-1.3)
[2023-08-28 10:17] LABS: BILIRUBIN,TOTAL 0.4 mg/dL (0.2-1); TOT PROT 7.8 g/dl (6.4-8.2)
[2023-08-28] MEDS ORDERED: INSULIN (NOVOLOG) ASPART 100 UNITS/ML 10ML VIAL ONE ×4 (11:49→16:45)
[2023-08-28] MEDS: ATORVASTATIN CA 40 MG TABLET (FP) PO SCH (21:22)
[2023-08-28] MEDS: INSULIN (LEVEMIR) 100 UNITS/ML UNITS SQ SCH (22:32)
[2023-08-29] MEDS: AZTREONAM 1 GM in DEXTROSE 5%-WATER - 50 ML IVPB SCH ×4 (03:05→17:30)
[2023-08-29] MEDS: VANCOMYCIN PREMIX 1.5 GM 1,500 MG/300 ML BAG IVPB SCH ×2 (04:04→16:21)
[2023-08-29] MEDS: NYSTATIN 500,000 UNITS/5 ML SUSPENSION PO SCH ×4 (06:01→23:53)
[2023-08-29] MEDS: GABAPENTIN 300 MG CAPSULE PO SCH ×3 (06:01→21:58)
[2023-08-29] MEDS: oxyCODONE HCL 5 MG TABLET PO PRN ×4 (06:05→21:55)
[2023-08-29] MEDS: INSULIN SLIDING SCALE (NOVOLOG) 1 VIAL SQ SCH ×4 (06:33→22:07)
[2023-08-29 08:21] LABS: EOS % 1.1 % (0-4.5); HEMATOCRIT 30.9 % (35.4-49); HEMOGLOBIN 10.1 GM/dL (11.7-16.9); LYMPH % 23.7 % (8-40); MCH 24.7 pg (25.7-33.7); MCHC 32.8 g/dl (32.0-35.9); MEAN CELL VOLUME 75.3 fl (80-96); MEAN PLT VOLUME 7.7 fl (7.5-11.1); MONO % 7.5 % (3.8-10.2); NEUT % 66.7 % (42.8-82.8); PLATELET COUNT 439 10^3/uL (134-434); RDW 14.9 % (11.9-15.9); WHITE BLOOD COUNT 7.3 K/mm3 (4.0-10.0)
[2023-08-29 08:44] LABS: POTASSIUM 4.2 mmol/L (3.5-5.1)
[2023-08-29 08:50] LABS: BLOOD UREA NITROGEN 14.2 mg/dL (7-18); CALCIUM 8.4 mg/dL (8.5-10.1); MAGNESIUM 1.7 mg/dL (1.8-2.4)
[2023-08-29 08:53] LABS: CREATININE 0.7 mg/dL (0.55-1.3)
[2023-08-29 08:55] LABS: BILIRUBIN,TOTAL 0.3 mg/dL (0.2-1); TOT PROT 7.4 g/dl (6.4-8.2)
[2023-08-29] MEDS: AMINO ACIDS/PROTEIN HYDROLYS 30 ML LIQUID.PKT PO SCH ×2 (09:36→16:34)
[2023-08-29] MEDS: PANTOPRAZOLE 40 MG TABLET PO SCH (09:37)
[2023-08-29] MEDS: POLYETHYLENE GLYCOL (HEALTHYLAX) 3350 17 GM PACKET PO SCH (09:37)
[2023-08-29] MEDS: ENOXAPARIN NA (PORCINE) 40 MG/0.4 ML DISP.SYRIN SQ SCH (09:37)
[2023-08-29] MEDS: ASPIRIN 81 MG CHEWABLE TABLETS PO SCH (09:37)
[2023-08-29] MEDS ORDERED: INSULIN (NOVOLOG) ASPART 100 UNITS/ML 10ML VIAL ONE ×2 (13:07→17:09)
[2023-08-29] MEDS: CARBAMIDE PEROXIDE 6.5% OTIC 15 ML BOTTLE AD SCH ×2 (13:24→22:51)
[2023-08-29 18:39] VITALS: BMI 31.6
[2023-08-29] MEDS: ATORVASTATIN CA 40 MG TABLET (FP) PO SCH (21:56)
[2023-08-29] MEDS: INSULIN (LEVEMIR) 100 UNITS/ML UNITS SQ SCH (22:07)
[2023-08-30] MEDS: AZTREONAM 1 GM in DEXTROSE 5%-WATER - 50 ML IVPB SCH ×3 (03:11→17:03)
[2023-08-30] MEDS: VANCOMYCIN PREMIX 1.5 GM 1,500 MG/300 ML BAG IVPB SCH ×2 (04:55→15:07)
[2023-08-30] MEDS: GABAPENTIN 300 MG CAPSULE PO SCH ×3 (06:01→21:26)
[2023-08-30] MEDS: NYSTATIN 500,000 UNITS/5 ML SUSPENSION PO SCH ×3 (06:01→17:03)
[2023-08-30] MEDS: oxyCODONE HCL 5 MG TABLET PO PRN ×4 (06:05→21:38)
[2023-08-30] MEDS: INSULIN SLIDING SCALE (NOVOLOG) 1 VIAL SQ SCH ×4 (06:26→22:04)
[2023-08-30] MEDS: AMINO ACIDS/PROTEIN HYDROLYS 30 ML LIQUID.PKT PO SCH ×2 (08:48→16:43)
[2023-08-30 09:11] LABS: BASO % 0.9 % (0-2.0); EOS % 1.8 % (0-4.5); HEMATOCRIT 31.6 % (35.4-49); HEMOGLOBIN 10.1 GM/dL (11.7-16.9); LYMPH % 29.9 % (8-40); MCH 24.5 pg (25.7-33.7); MCHC 31.8 g/dl (32.0-35.9); MEAN PLT VOLUME 7.8 fl (7.5-11.1); MONO % 10.4 % (3.8-10.2); PLATELET COUNT 396 10^3/uL (134-434); RDW 14.6 % (11.9-15.9); WHITE BLOOD COUNT 5.8 K/mm3 (4.0-10.0)
[2023-08-30] MEDS: MULTIVITAMINS (DAILY MVI) TABLET (FP) PO SCH (09:13)
[2023-08-30] MEDS: POLYETHYLENE GLYCOL (HEALTHYLAX) 3350 17 GM PACKET PO SCH (09:13)
[2023-08-30] MEDS: ASPIRIN 81 MG CHEWABLE TABLETS PO SCH (09:13)
[2023-08-30] MEDS: ENOXAPARIN NA (PORCINE) 40 MG/0.4 ML DISP.SYRIN SQ SCH (09:13)
[2023-08-30] MEDS: CARBAMIDE PEROXIDE 6.5% OTIC 15 ML BOTTLE AD SCH ×2 (09:13→21:27)
[2023-08-30] MEDS: ASCORBIC ACID 500 MG TABLET (FP) PO SCH (09:13)
[2023-08-30] MEDS: PANTOPRAZOLE 40 MG TABLET PO SCH (09:13)
[2023-08-30 09:27] LABS: POTASSIUM 4.1 mmol/L (3.5-5.1)
[2023-08-30 09:29] LABS: BLOOD UREA NITROGEN 10.6 mg/dL (7-18); CALCIUM 9.2 mg/dL (8.5-10.1)
[2023-08-30 09:30] LABS: ALBUMIN 2.2 g/dl (3.4-5.0); MAGNESIUM 1.7 mg/dL (1.8-2.4)
[2023-08-30 09:33] LABS: CREATININE 0.7 mg/dL (0.55-1.3)
[2023-08-30 09:34] LABS: BILIRUBIN,TOTAL 0.2 mg/dL (0.2-1); TOT PROT 7.7 g/dl (6.4-8.2)
[2023-08-30] MEDS ORDERED: INSULIN (NOVOLOG) ASPART 100 UNITS/ML 10ML VIAL ONE ×2 (11:30→19:08)
[2023-08-30] MEDS ORDERED: INSULIN (LEVEMIR) 100 UNITS/ML UNITS SQ ONE (19:08)
[2023-08-30] MEDS: ATORVASTATIN CA 40 MG TABLET (FP) PO SCH (21:27)
[2023-08-30] MEDS: INSULIN (LEVEMIR) 100 UNITS/ML UNITS SQ SCH (22:03)
[2023-08-31] MEDS: NYSTATIN 500,000 UNITS/5 ML SUSPENSION PO SCH ×4 (00:30→17:37)
[2023-08-31] MEDS: oxyCODONE HCL 5 MG TABLET PO PRN ×4 (03:16→20:08)
[2023-08-31] MEDS: AZTREONAM 1 GM in DEXTROSE 5%-WATER - 50 ML IVPB SCH ×3 (03:19→17:38)
[2023-08-31] MEDS: VANCOMYCIN PREMIX 1.5 GM 1,500 MG/300 ML BAG IVPB SCH ×2 (05:16→18:41)
[2023-08-31] MEDS: GABAPENTIN 300 MG CAPSULE PO SCH ×3 (05:55→21:20)
[2023-08-31] MEDS: INSULIN SLIDING SCALE (NOVOLOG) 1 VIAL SQ SCH ×4 (06:27→21:42)
[2023-08-31] MEDS: AMINO ACIDS/PROTEIN HYDROLYS 30 ML LIQUID.PKT PO SCH ×2 (08:33→17:37)
[2023-08-31 09:23] LABS: BASO % 0.9 % (0-2.0); HEMATOCRIT 32.6 % (35.4-49); HEMOGLOBIN 10.3 GM/dL (11.7-16.9); LYMPH % 33.9 % (8-40); MCH 24.2 pg (25.7-33.7); MCHC 31.6 g/dl (32.0-35.9); MEAN CELL VOLUME 76.7 fl (80-96); MEAN PLT VOLUME 8.1 fl (7.5-11.1); MONO % 8.8 % (3.8-10.2); NEUT % 54.4 % (42.8-82.8); PLATELET COUNT 390 10^3/uL (134-434); RBC 4.25 M/mm3 (4.00-5.60); RDW 14.8 % (11.9-15.9); WHITE BLOOD COUNT 6.2 K/mm3 (4.0-10.0)
[2023-08-31 09:42] LABS: POTASSIUM 4.4 mmol/L (3.5-5.1)
[2023-08-31 09:45] LABS: ALBUMIN 2.3 g/dl (3.4-5.0); CALCIUM 8.9 mg/dL (8.5-10.1)
[2023-08-31 09:46] LABS: BLOOD UREA NITROGEN 10.1 mg/dL (7-18); MAGNESIUM 1.6 mg/dL (1.8-2.4)
[2023-08-31 09:49] LABS: CREATININE 0.6 mg/dL (0.55-1.3)
[2023-08-31 09:50] LABS: BILIRUBIN,TOTAL 0.3 mg/dL (0.2-1); TOT PROT 7.9 g/dl (6.4-8.2)
[2023-08-31] MEDS: ENOXAPARIN NA (PORCINE) 40 MG/0.4 ML DISP.SYRIN SQ SCH (10:47)
[2023-08-31] MEDS: POLYETHYLENE GLYCOL (HEALTHYLAX) 3350 17 GM PACKET PO SCH (10:47)
[2023-08-31] MEDS: MULTIVITAMINS (DAILY MVI) TABLET (FP) PO SCH (10:48)
[2023-08-31] MEDS: MAGNESIUM OXIDE 400 MG TABLET (FP) PO SCH ×2 (10:48→21:19)
[2023-08-31] MEDS: ASCORBIC ACID 500 MG TABLET (FP) PO SCH (10:48)
[2023-08-31] MEDS: CARBAMIDE PEROXIDE 6.5% OTIC 15 ML BOTTLE AD SCH ×2 (10:48→21:20)
[2023-08-31] MEDS: PANTOPRAZOLE 40 MG TABLET PO SCH (10:48)
[2023-08-31] MEDS: ASPIRIN 81 MG CHEWABLE TABLETS PO SCH (10:48)
[2023-08-31] MEDS: ACETAMINOPHEN 500 MG TABLET (FP) PO PRN (13:58)
[2023-08-31] MEDS ORDERED: INSULIN (NOVOLOG) ASPART 100 UNITS/ML 10ML VIAL ONE ×2 (17:28→21:38)
[2023-08-31] MEDS: INSULIN (LEVEMIR) 100 UNITS/ML UNITS SQ SCH (21:20)
[2023-08-31] MEDS: ATORVASTATIN CA 40 MG TABLET (FP) PO SCH (21:20)
[2023-09-01] MEDS: AZTREONAM 1 GM in DEXTROSE 5%-WATER - 50 ML IVPB SCH ×3 (01:04→17:48)
[2023-09-01] MEDS: NYSTATIN 500,000 UNITS/5 ML SUSPENSION PO SCH ×4 (01:04→17:48)
[2023-09-01] MEDS: oxyCODONE HCL 5 MG TABLET PO PRN ×5 (01:09→21:26)
[2023-09-01] MEDS: VANCOMYCIN PREMIX 1.5 GM 1,500 MG/300 ML BAG IVPB SCH ×2 (05:45→16:05)
[2023-09-01] MEDS: GABAPENTIN 300 MG CAPSULE PO SCH ×3 (05:46→21:25)
[2023-09-01] MEDS: INSULIN SLIDING SCALE (NOVOLOG) 1 VIAL SQ SCH ×4 (06:01→21:31)
[2023-09-01 08:30] LABS: EOS % 2.3 % (0-4.5); HEMATOCRIT 31.6 % (35.4-49); HEMOGLOBIN 9.9 GM/dL (11.7-16.9); LYMPH % 30.7 % (8-40); MCH 24.1 pg (25.7-33.7); MCHC 31.3 g/dl (32.0-35.9); MEAN CELL VOLUME 77.1 fl (80-96); MEAN PLT VOLUME 8.2 fl (7.5-11.1); MONO % 10.1 % (3.8-10.2); NEUT % 55.9 % (42.8-82.8); PLATELET COUNT 320 10^3/uL (134-434); RDW 15.1 % (11.9-15.9); WHITE BLOOD COUNT 5.6 K/mm3 (4.0-10.0)
[2023-09-01 08:40] LABS: POTASSIUM 4.2 mmol/L (3.5-5.1)
[2023-09-01 08:46] LABS: ALBUMIN 2.2 g/dl (3.4-5.0); BLOOD UREA NITROGEN 9.9 mg/dL (7-18); CALCIUM 8.7 mg/dL (8.5-10.1); MAGNESIUM 1.6 mg/dL (1.8-2.4)
[2023-09-01 08:48] LABS: CREATININE 0.7 mg/dL (0.55-1.3)
[2023-09-01 08:50] LABS: BILIRUBIN,TOTAL 0.2 mg/dL (0.2-1); TOT PROT 7.3 g/dl (6.4-8.2)
[2023-09-01] MEDS ORDERED: oxyCODONE HCL 5 MG TABLET PO PRN (09:56)
[2023-09-01] MEDS: AMINO ACIDS/PROTEIN HYDROLYS 30 ML LIQUID.PKT PO SCH ×2 (10:04→17:20)
[2023-09-01] MEDS: POLYETHYLENE GLYCOL (HEALTHYLAX) 3350 17 GM PACKET PO SCH (10:05)
[2023-09-01] MEDS: ENOXAPARIN NA (PORCINE) 40 MG/0.4 ML DISP.SYRIN SQ SCH (10:05)
[2023-09-01] MEDS: PANTOPRAZOLE 40 MG TABLET PO SCH (10:05)
[2023-09-01] MEDS: MAGNESIUM OXIDE 400 MG TABLET (FP) PO SCH ×3 (10:06→21:25)
[2023-09-01] MEDS: MULTIVITAMINS (DAILY MVI) TABLET (FP) PO SCH (10:06)
[2023-09-01] MEDS: CARBAMIDE PEROXIDE 6.5% OTIC 15 ML BOTTLE AD SCH ×2 (10:06→21:29)
[2023-09-01] MEDS: ASPIRIN 81 MG CHEWABLE TABLETS PO SCH (10:06)
[2023-09-01] MEDS: ASCORBIC ACID 500 MG TABLET (FP) PO SCH (10:06)
[2023-09-01] MEDS ORDERED: INSULIN (NOVOLOG) ASPART 100 UNITS/ML 10ML VIAL ONE ×4 (11:08→21:31)
[2023-09-01] MEDS: ATORVASTATIN CA 40 MG TABLET (FP) PO SCH (21:25)
[2023-09-01] MEDS: INSULIN (LEVEMIR) 100 UNITS/ML UNITS SQ SCH (21:29)
[2023-09-02] MEDS: NYSTATIN 500,000 UNITS/5 ML SUSPENSION PO SCH ×4 (01:17→17:44)
[2023-09-02] MEDS: AZTREONAM 1 GM in DEXTROSE 5%-WATER - 50 ML IVPB SCH ×3 (01:17→17:45)
[2023-09-02] MEDS: oxyCODONE HCL 5 MG TABLET PO PRN ×4 (01:26→16:01)
[2023-09-02] MEDS: GABAPENTIN 300 MG CAPSULE PO SCH ×2 (05:58→13:09)
[2023-09-02] MEDS: VANCOMYCIN PREMIX 1.5 GM 1,500 MG/300 ML BAG IVPB SCH ×2 (06:00→15:59)
[2023-09-02] MEDS: INSULIN SLIDING SCALE (NOVOLOG) 1 VIAL SQ SCH ×3 (06:06→16:13)
[2023-09-02] MEDS ORDERED: INSULIN (NOVOLOG) ASPART 100 UNITS/ML 10ML VIAL ONE ×2 (06:49→10:48)
[2023-09-02] MEDS ORDERED: INSULIN (LEVEMIR) 100 UNITS/ML UNITS SQ ONE (06:50)
[2023-09-02 09:23] LABS: BASO % 1.2 % (0-2.0); HEMATOCRIT 32.4 % (35.4-49); HEMOGLOBIN 10.1 GM/dL (11.7-16.9); LYMPH % 35.6 % (8-40); MCH 24.1 pg (25.7-33.7); MCHC 31.2 g/dl (32.0-35.9); MEAN CELL VOLUME 77.2 fl (80-96); MEAN PLT VOLUME 8.5 fl (7.5-11.1); NEUT % 49.2 % (42.8-82.8); PLATELET COUNT 284 10^3/uL (134-434); RDW 15.3 % (11.9-15.9); WHITE BLOOD COUNT 4.8 K/mm3 (4.0-10.0)
[2023-09-02 09:46] LABS: POTASSIUM 4.3 mmol/L (3.5-5.1)
[2023-09-02 09:50] LABS: CALCIUM 8.5 mg/dL (8.5-10.1)
[2023-09-02 09:51] LABS: ALBUMIN 2.3 g/dl (3.4-5.0); BLOOD UREA NITROGEN 8.6 mg/dL (7-18); MAGNESIUM 1.7 mg/dL (1.8-2.4)
[2023-09-02 09:54] LABS: CREATININE 0.7 mg/dL (0.55-1.3)
[2023-09-02 09:56] LABS: BILIRUBIN,TOTAL 0.3 mg/dL (0.2-1); TOT PROT 7.5 g/dl (6.4-8.2)
[2023-09-02] MEDS ORDERED: MAGNESIUM OXIDE 400 MG TABLET (FP) PO SCH (10:30)
[2023-09-02] MEDS: MAGNESIUM OXIDE 400 MG TABLET (FP) PO SCH (10:52)
[2023-09-02] MEDS: AMINO ACIDS/PROTEIN HYDROLYS 30 ML LIQUID.PKT PO SCH ×2 (10:52→17:44)
[2023-09-02] MEDS: ASPIRIN 81 MG CHEWABLE TABLETS PO SCH (10:53)
[2023-09-02] MEDS: POLYETHYLENE GLYCOL (HEALTHYLAX) 3350 17 GM PACKET PO SCH (10:53)
[2023-09-02] MEDS: CARBAMIDE PEROXIDE 6.5% OTIC 15 ML BOTTLE AD SCH (10:53)
[2023-09-02] MEDS: PANTOPRAZOLE 40 MG TABLET PO SCH (10:53)
[2023-09-02] MEDS: MULTIVITAMINS (DAILY MVI) TABLET (FP) PO SCH (10:53)
[2023-09-02] MEDS: ENOXAPARIN NA (PORCINE) 40 MG/0.4 ML DISP.SYRIN SQ SCH (10:53)
[2023-09-02] MEDS: ASCORBIC ACID 500 MG TABLET (FP) PO SCH (10:53)
[2023-09-02 14:14] VITALS: BP 111/68; PULSE 77; RESP 20; TEMP 97.9
== END 2023-09-02 20:55 | DRG 710 ==
LOC: JER 16:29 → JERBED 22:11 → J7W 08-16 05:33
PROVIDERS: ADMIT Internal Medicine; ATTEND Nurse Practitioner Acute Care
PROC: 0Y9M0ZX Drainage of Right Foot, Open Approach, Diagnostic (ICD-10-PCS; 2023-08-16)
PROC: 0Y9M0ZZ Drainage of Right Foot, Open Approach (ICD-10-PCS; 2023-08-20)
PROC: 0LBV0ZZ Excision of Right Foot Tendon, Open Approach (ICD-10-PCS; principal; 2023-08-20 17:00)
PROC: 02HV33Z Insertion of Infusion Device into Superior Vena Cava, Percutaneous Approach (ICD-10-PCS; 2023-09-02)
PROC: B548ZZA Ultrasonography of Superior Vena Cava, Guidance (ICD-10-PCS; 2023-09-02)
DX: A41.9 Sepsis, unspecified organism (principal); E11.52 Type 2 diabetes mellitus with diabetic peripheral angiopathy with gangrene; E11.42 Type 2 diabetes mellitus with diabetic polyneuropathy; M72.6 Necrotizing fasciitis; L02.611 Cutaneous abscess of right foot; I45.10 Unspecified right bundle-branch block; E78.5 Hyperlipidemia, unspecified; I10 Essential (primary) hypertension; B37.0 Candidal stomatitis
CPT/HCPCS: 36415; 36569; 73590-TC-RT-FY; 73610-TC-RT-FY; 73630-TC-RT-FY; 73700-TC-RT; 73718-TC-RT; 77001-TC-FY; 80048; 80053; 82962; 83036; 83605; 83735; 84100; 85025; 85610; 85651; 86140; 86850; 86900; 86901; 87040; 87070; 87186; 87205; 93005; 93010; 93926-TC; 94760; 97116-GP; 97161-GP; 99285-25; C1751; G0480

== ENCOUNTER 2024-02-26 03:56 | Day surgery (SDC) | payer OTHER ==
[2024-02-17 12:08] VITALS: BMI 33.2
[~2024-02-26 03:56] MED LIST: ACETAMINOPHEN 500 MG TABLET (FP) PO PRN
[2024-02-26] MEDS ORDERED: LIDOCAINE HCL/PF 1% SDV 5ML VIAL ONE (07:20)
[2024-02-26 08:24] VITALS: RESP 18
[2024-02-26] MEDS ORDERED: MIDAZOLAM HCL 2 MG/2 ML SINGLE DOSE VIAL ONE ×3 (09:06→10:19)
[2024-02-26] MEDS ORDERED: FENTANYL CITRATE/PF 50 MCG/ML VIAL ONE ×3 (09:06→10:19)
[2024-02-26] MEDS ORDERED: LIDOCAINE HCL/PF 2% SDV 5ML VIAL ONE ×2 (09:12→09:20)
[2024-02-26] MEDS: LIDOCAINE HCL/PF 2% SDV 5ML VIAL INF ONE (09:56)
[2024-02-26] MEDS: LIDOCAINE 1% P/F 10 MG/ML VIAL INF ONE ×2 (09:56)
[2024-02-26] MEDS ORDERED: CLINDAMYCIN PHOSPHATE 600 MG/4 ML VIAL ONE ×2 (09:58→10:00)
[2024-02-26] MEDS ORDERED: ACETAMINOPHEN 500 MG TABLET (FP) PO PRN (10:48)
[2024-02-26 11:43] VITALS: BP 134/81; PULSE 89; TEMP 97.7
== END 2024-02-26 13:00 | disposition home or self-care (01) ==
LOC: JASU-SURG 03:56
PROVIDERS: ATTEND Pain Medicine Pain Medicine
PROC: 01HY3MZ Insertion of Neurostimulator Lead into Peripheral Nerve, Percutaneous Approach (ICD-10-PCS; principal; 2024-02-26 10:15)
DX: G89.4 Chronic pain syndrome (principal); E11.40 Type 2 diabetes mellitus with diabetic neuropathy, unspecified; G57.73 Causalgia of bilateral lower limbs
CPT/HCPCS: 63650; C1897; 76000-TC-FY; 82962; C1889

== ENCOUNTER 2024-03-28 15:13 | Inpatient (IN) | payer OTHER ==
[2024-03-28] MEDS ORDERED: MEROPENEM 1 GM VIAL (RESTRICTED TO ID) IVPB ONE (16:38)
[2024-03-28] MEDS: MEROPENEM 1 GM in DEXTROSE 5%-WATER 100 ML IVPB ONE (17:00)
[2024-03-28 17:09] LABS: BASO % 0.9 % (0-2.0); EOS % 2.2 % (0-4.5); HEMATOCRIT 33.5 % (35.4-49); HEMOGLOBIN 10.8 GM/dL (11.7-16.9); LYMPH % 30.9 % (8-40); MCH 23.9 pg (25.7-33.7); MCHC 32.3 g/dl (32.0-35.9); MEAN CELL VOLUME 74.1 fl (80-96); MEAN PLT VOLUME 7.5 fl (7.5-11.1); MONO % 9.9 % (3.8-10.2); NEUT % 56.1 % (42.8-82.8); PLATELET COUNT 321 10^3/uL (134-434); RBC 4.52 M/mm3 (4.00-5.60); RDW 16.2 % (11.9-15.9); WHITE BLOOD COUNT 8.2 K/mm3 (4.0-10.0)
[2024-03-28 17:15] LABS: INR 1.28 (0.83-1.09); PROTHROMBIN TIME (PATIENT) 14.6 SEC (9.7-13.0)
[2024-03-28 17:18] LABS: ACTIVATED PTT 32.8 SECONDS (25.2-36.5)
[2024-03-28 17:28] LABS: POTASSIUM 4.1 mmol/L (3.5-5.1)
[2024-03-28 17:30] LABS: CALCIUM 9.3 mg/dL (8.5-10.1)
[2024-03-28 17:31] LABS: ALBUMIN 3.1 g/dl (3.4-5.0); BLOOD UREA NITROGEN 6.6 mg/dL (7-18); MAGNESIUM 2.1 mg/dL (1.8-2.4)
[2024-03-28 17:34] LABS: CREATININE 0.8 mg/dL (0.55-1.3)
[2024-03-28 17:35] LABS: BILIRUBIN,TOTAL 0.4 mg/dL (0.2-1); TOT PROT 7.9 g/dl (6.4-8.2)
[2024-03-28] MEDS ORDERED: VANCOMYCIN 1 GRAM (PRE-DOCKED) 1,000 MG/250 ML BAG IVPB ONE (17:44)
[2024-03-28] MEDS: VANCOMYCIN 1,000 MG in DEXTROSE 5%-WATER - 250 ML IVPB ONE (17:59)
[2024-03-28 18:24] LABS: ERYTHROCYTE SEDIMENTATION RATE 94 mm/hr (0-10)
[2024-03-28 22:57] VITALS: BMI 31.8
[2024-03-28] MEDS: HEPARIN NA (PORCINE) 5,000 UNITS/ML 1ML VIAL SQ SCH (23:28)
[2024-03-28] MEDS: ATORVASTATIN CA 40 MG TABLET (FP) PO SCH (23:28)
[2024-03-29] MEDS: MEROPENEM 1 GM in DEXTROSE 5%-WATER 100 ML IVPB SCH ×2 (01:19→18:11)
[2024-03-29] MEDS ORDERED: MEROPENEM 1 GM in DEXTROSE 5%-WATER 100 ML IVPB SCH (02:00)
[2024-03-29] MEDS ORDERED: VANCOMYCIN 1,000 MG in DEXTROSE 5%-WATER - 250 ML IVPB SCH (06:00)
[2024-03-29] MEDS: VANCOMYCIN/WATER FOR INJ (PEG) 1,000 MG/200 ML BAG IVPB SCH ×2 (06:19→18:12)
[2024-03-29 07:56] LABS: BASO % 1.2 % (0-2.0); EOS % 3.9 % (0-4.5); HEMATOCRIT 32.1 % (35.4-49); HEMOGLOBIN 10.2 GM/dL (11.7-16.9); LYMPH % 24.8 % (8-40); MCH 23.9 pg (25.7-33.7); MCHC 31.8 g/dl (32.0-35.9); MEAN PLT VOLUME 7.9 fl (7.5-11.1); MONO % 9.6 % (3.8-10.2); NEUT % 60.5 % (42.8-82.8); PLATELET COUNT 303 10^3/uL (134-434); RBC 4.29 M/mm3 (4.00-5.60); RDW 16.3 % (11.9-15.9); WHITE BLOOD COUNT 6.5 K/mm3 (4.0-10.0)
[2024-03-29 08:04] LABS: POTASSIUM 4.5 mmol/L (3.5-5.1)
[2024-03-29 08:17] LABS: CALCIUM 8.7 mg/dL (8.5-10.1)
[2024-03-29 08:18] LABS: BLOOD UREA NITROGEN 7.3 mg/dL (7-18)
[2024-03-29 08:22] LABS: CREATININE 0.8 mg/dL (0.55-1.3)
[2024-03-29] MEDS: DULoxetine HCL 30 MG CAPSULE.DR PO SCH ×2 (11:00→21:57)
[2024-03-29] MEDS: ASPIRIN 81 MG CHEWABLE TABLETS PO SCH (11:01)
[2024-03-29] MEDS: GABAPENTIN 300 MG CAPSULE PO SCH (11:01)
[2024-03-29] MEDS: PANTOPRAZOLE 40 MG TABLET PO SCH (11:02)
[2024-03-29] MEDS: ACETAMINOPHEN 500 MG TABLET (FP) PO PRN (17:10)
[2024-03-29] MEDS ORDERED: VANCOMYCIN 1 GM PREMIX - 1 GM/200 ML BAG IVPB SCH (17:15)
[2024-03-29] MEDS: INSULIN ASPART SLIDING SCALE (NOVOLOG) 1 VIAL SQ SCH (18:07)
[2024-03-30] MEDS: ACETAMINOPHEN 1000 MG/100 ML BAG IVPB ONE ×2 (03:59→04:00)
[2024-03-30] MEDS ORDERED: ACETAMINOPHEN 325 MG TABLET (FP) PO PRN (06:58)
[2024-03-30 07:55] LABS: HEMATOCRIT 32.4 % (35.4-49); HEMOGLOBIN 10.6 GM/dL (11.7-16.9); MCH 24.1 pg (25.7-33.7); MCHC 32.8 g/dl (32.0-35.9); MEAN CELL VOLUME 73.5 fl (80-96); MEAN PLT VOLUME 7.7 fl (7.5-11.1); PLATELET COUNT 309 10^3/uL (134-434); RDW 15.9 % (11.9-15.9); WHITE BLOOD COUNT 6.7 K/mm3 (4.0-10.0)
[2024-03-30 07:57] LABS: POTASSIUM 4.4 mmol/L (3.5-5.1)
[2024-03-30 08:05] LABS: ALBUMIN 2.7 g/dl (3.4-5.0); BLOOD UREA NITROGEN 7.3 mg/dL (7-18); CALCIUM 8.6 mg/dL (8.5-10.1); CREATININE 0.7 mg/dL (0.55-1.3)
[2024-03-30 08:09] LABS: BILIRUBIN,TOTAL 0.4 mg/dL (0.2-1); TOT PROT 7.5 g/dl (6.4-8.2)
[2024-03-30 08:58] LABS: ERYTHROCYTE SEDIMENTATION RATE 91 mm/hr (0-10)
[2024-03-30] MEDS: ASCORBIC ACID 250 MG TABLET (FP) PO SCH (09:39)
[2024-03-30] MEDS: VITAMIN B COMPLEX W/C COMBO TABLET (FP) PO SCH (09:41)
[2024-03-30] MEDS: oxyCODONE HCL 5 MG TABLET PO PRN (09:55)
[2024-03-30] MEDS ORDERED: VANCOMYCIN/WATER FOR INJ (PEG) 1,000 MG/200 ML BAG IVPB SCH (10:00)
[2024-03-30] MEDS ORDERED: CHOLECALCIFEROL (VIT D3) 5000 UNITS (125 MCG) CAP PO SCH (10:00)
[2024-03-30] MEDS: CALCIUM (OYSTER SHELL) 500 MG TABLET (FP) PO SCH (10:02)
[2024-03-30] MEDS: COLLAGENASE CLOSTRIDIUM HIST. 30 GRAMS TUBE TP SCH (23:46)
[2024-03-31] MEDS: VANCOMYCIN/WATER FOR INJ (PEG) 1,000 MG/200 ML BAG IVPB SCH (05:17)
[2024-03-31 10:48] LABS: HEMATOCRIT 34.1 % (35.4-49); MCH 24.2 pg (25.7-33.7); MCHC 32.3 g/dl (32.0-35.9); MEAN CELL VOLUME 74.9 fl (80-96); MEAN PLT VOLUME 7.9 fl (7.5-11.1); PLATELET COUNT 328 10^3/uL (134-434); RBC 4.56 M/mm3 (4.00-5.60); WHITE BLOOD COUNT 7.3 K/mm3 (4.0-10.0)
[2024-03-31 11:06] LABS: POTASSIUM 4.3 mmol/L (3.5-5.1)
[2024-03-31 11:18] LABS: CALCIUM 9.6 mg/dL (8.5-10.1)
[2024-03-31 11:19] LABS: ALBUMIN 3.1 g/dl (3.4-5.0); BLOOD UREA NITROGEN 9.3 mg/dL (7-18)
[2024-03-31 11:22] LABS: CREATININE 0.8 mg/dL (0.55-1.3)
[2024-03-31 11:23] LABS: BILIRUBIN,TOTAL 0.4 mg/dL (0.2-1); TOT PROT 8.1 g/dl (6.4-8.2)
[2024-03-31 11:52] LABS: ERYTHROCYTE SEDIMENTATION RATE 90 mm/hr (0-10)
[2024-04-01 10:15] LABS: HEMATOCRIT 38.5 % (35.4-49); HEMOGLOBIN 12.2 GM/dL (11.7-16.9); MCH 23.6 pg (25.7-33.7); MCHC 31.8 g/dl (32.0-35.9); MEAN CELL VOLUME 74.4 fl (80-96); MEAN PLT VOLUME 7.9 fl (7.5-11.1); PLATELET COUNT 349 10^3/uL (134-434); RBC 5.17 M/mm3 (4.00-5.60); RDW 15.9 % (11.9-15.9); WHITE BLOOD COUNT 7.2 K/mm3 (4.0-10.0)
[2024-04-01 10:35] LABS: POTASSIUM 4.6 mmol/L (3.5-5.1)
[2024-04-01 10:38] LABS: CALCIUM 9.7 mg/dL (8.5-10.1)
[2024-04-01 10:39] LABS: ALBUMIN 3.3 g/dl (3.4-5.0); BLOOD UREA NITROGEN 13.7 mg/dL (7-18)
[2024-04-01 10:42] LABS: CREATININE 0.7 mg/dL (0.55-1.3)
[2024-04-01 10:43] LABS: BILIRUBIN,TOTAL 0.3 mg/dL (0.2-1)
[2024-04-01 10:44] LABS: TOT PROT 8.2 g/dl (6.4-8.2)
[2024-04-01] MEDS: DAPTOMYCIN 800 MG in SODIUM CHLORIDE 50 ML IVPB SCH (15:39)
[2024-04-01] MEDS: CEFTRIAXONE 2 GM in DEXTROSE 5%-WATER 100 ML IVPB SCH (17:46)
[2024-04-01] MEDS: DAPTOMYCIN IVPB SCH (18:13)
[2024-04-01] MEDS: SODIUM CHLORIDE IVPB SCH (18:13)
[2024-04-03 08:45] VITALS: RESP 18
[2024-04-03 09:47] LABS: BASO % 0.7 % (0-2.0); EOS % 2.7 % (0-4.5); HEMATOCRIT 38.2 % (35.4-49); HEMOGLOBIN 12.5 GM/dL (11.7-16.9); LYMPH % 32.9 % (8-40); MCH 24.2 pg (25.7-33.7); MCHC 32.7 g/dl (32.0-35.9); MEAN PLT VOLUME 7.9 fl (7.5-11.1); MONO % 6.3 % (3.8-10.2); NEUT % 57.4 % (42.8-82.8); PLATELET COUNT 324 10^3/uL (134-434); RBC 5.16 M/mm3 (4.00-5.60); RDW 16.1 % (11.9-15.9); WHITE BLOOD COUNT 7.8 K/mm3 (4.0-10.0)
[2024-04-03 10:02] LABS: POTASSIUM 4.8 mmol/L (3.5-5.1)
[2024-04-03 10:05] LABS: ALBUMIN 3.4 g/dl (3.4-5.0); BLOOD UREA NITROGEN 12.8 mg/dL (7-18); CALCIUM 9.2 mg/dL (8.5-10.1)
[2024-04-03 10:08] LABS: CREATININE 0.8 mg/dL (0.55-1.3)
[2024-04-03 10:10] LABS: BILIRUBIN,TOTAL 0.2 mg/dL (0.2-1); TOT PROT 8.7 g/dl (6.4-8.2)
[2024-04-03] MEDS: oxyCODONE HCL 5 MG TABLET PO PRN (22:37)
[2024-04-04 15:13] VITALS: BP 145/79; PULSE 87; TEMP 97.6
== END 2024-04-04 18:24 | disposition home or self-care (01) | DRG 344 ==
LOC: JER 15:13 → JERBED 17:25 → J6S 21:54
PROVIDERS: ADMIT Internal Medicine; ATTEND Internal Medicine
PROC: 02HV33Z Insertion of Infusion Device into Superior Vena Cava, Percutaneous Approach (ICD-10-PCS; principal; 2024-04-01)
PROC: B548ZZA Ultrasonography of Superior Vena Cava, Guidance (ICD-10-PCS; 2024-04-01)
DX: E11.69 Type 2 diabetes mellitus with other specified complication (principal); M86.8X7 Other osteomyelitis, ankle and foot; E11.40 Type 2 diabetes mellitus with diabetic neuropathy, unspecified; E11.51 Type 2 diabetes mellitus with diabetic peripheral angiopathy without gangrene; E78.5 Hyperlipidemia, unspecified; L02.611 Cutaneous abscess of right foot; E11.621 Type 2 diabetes mellitus with foot ulcer; L97.529 Non-pressure chronic ulcer of other part of left foot with unspecified severity; L97.519 Non-pressure chronic ulcer of other part of right foot with unspecified severity; K42.9 Umbilical hernia without obstruction or gangrene; E11.649 Type 2 diabetes mellitus with hypoglycemia without coma; D50.9 Iron deficiency anemia, unspecified; M14.672 Charcot's joint, left ankle and foot
CPT/HCPCS: 36415; 36569; 73630-TC-LT; 73630-TC-RT-FY; 73701-TC-RT; 73718-TC-RT; 80048; 80053; 82550; 82728; 82962; 83540; 83550; 83735; 85025; 85027; 85610; 85651; 85730; 86140; 87040; 87070; 87186; 87205; 93005; 93010; 93926-TC; 93970-TC; 99285-25; J0131; J0878; J1644; Q9967